=== PATIENT | male | born 1990 | race Caucasian/White ===

== ENCOUNTER → 2023-09-13 06:57 | Outpatient (REF) | payer OTHER, SELFPAY | LOC: HWRCS 06:57 | PROVIDERS: ATTENDING PHYSICIAN Nurse Practitioner Family; FAMILY PHYSICIAN Family Medicine | DX: R07.89 Other chest pain (principal); M25.561 Pain in right knee; M25.562 Pain in left knee | CPT/HCPCS: 73564; 93306 ==